=== PATIENT | female | born 1975 | race Caucasian/White ===

== ENCOUNTER 2025-02-11 14:19 | Outpatient (CLI) | payer OTHER, SELFPAY | END 2025-02-11 14:20 | disposition home or self-care (01) | LOC: AMB 02-12 13:13 | PROVIDERS: Visit Provider Emergency Medicine | DX: R55 Syncope and collapse (principal); R53.1 Weakness | CPT/HCPCS: A0425; A0427 ==

== ENCOUNTER 2025-02-11 14:45 | Emergency (ER) | payer OTHER, SELFPAY ==
--- OUTSIDE RECORDS SUMMARY | 2005-11-24 05:26 | XMS_ITS | Continuity of Care Document ---
Author Organization [facility] Address [address] [place] [address] Phone Care Team Providers Care Production Planning Manager Name Role Phone Unavailable Unavailable Unavailable Advance Directives Directive Yes / No Effective Date File Name No Information Encounters Encounter Description Practice Location Reason(s) For Visit Diagnoses Date Provider Providers Copied on Encounter [facility], [address], [place], [place], [id number], tel:[phone] [facility] No Information 0 6-200 6 No Information Referring Provider: Neno Navarrete MD [address], [address], [place], [address]. tel:[phone] Family History Family Member Type Diagnosis Age At Onset No Information Payers Payer name Insurance type Covered green party ID Authoriza tion(s) No Information Social History Type Description Quantity Date Captured Comments Sex Female Smoking Status No Information Chief Complaint And Reason For Visit No Information Reason For Referral Reason For Referral No Information History Of Present Illness Encounter Date Complaint History Of Prese nt Illness No Information Functional Status Date Functional Assessmen t No Information Instructions Date Instruction Additional Infor mation No Information Assessments Type Assessment Date No Information Patient Care Teams Name Effective Dates (start - stop) Status Members No Information
--- OUTSIDE RECORDS SUMMARY | 2005-11-24 05:26 | XMS_ITS | Continuity of Care Document ---
Author Organization [facility] Address [address] [place] [address] Phone Care Team Providers Care Animal Handler Name Role Phone Unavailable Unavailable Unavailable Advance Directives Directive Yes / No Effective Date File Name No Information Encounters Encounter Description Practice Location Reason(s) For Visit Diagnoses Date Provider Providers Copied on Encounter [facility], [address], [place], [place], [id number], tel:[phone] [facility] No Information 0 6-200 6 No Information Referring Provider: Neno Navarrete MD [address], [place], [address]. tel:[phone] Family History Family Member Type Diagnosis Age At Onset No Information Payers Payer name Insurance type Covered alliance party ID Authoriza tion(s) No Information Social [...]
[2025-02-11 14:55] VITALS: BP 113/70; BP 113/80; BP 124/71; PULSE 60; PULSE 63; PULSE 64; RESP 16; TEMP 36.3; O2SAT 100; BMI 17.9
[2025-02-11 15:48] LABS: Appearance Urine Clear (Clear)
--- NOTE | 2025-02-11 15:50 | ED_ITS ---
HPI - General Adult General Date Seen: 02/11/25 Chief complaint: Weakness Stated complaint: Syncope Time Seen by Provider: 02/11/25 15:03 Source: patient Mode of arrival: EMS Limitations: no limitations History of Present Illness HPI narrative: Patient is a 49-year-old female presenting to the emergency department for near syncopal episode. She states she was at work few days ago when she was wrapping up a [employer] when she started feeling lightheaded and felt like she was going to pass out. Symptoms resolved within occurred last night and again the 3rd time today while she was at work again. States the symptoms have happened before. The 1st occurred several months ago. She states she has been having issues ever since she got a bad concussion several years ago. Unsure exactly how long ago it was. Her colleague brought her to urgent care and they then sent her to the emergency department via ambulance. She states she is feeling better now that she is laying down. Denies any chest pain or shortness of breath associated with the episode. Denies headache, vision changes, weakness, numbness, abdominal pain, diarrhea, constipation, fevers, chills. Does states she at base line has bradycardia and heart rate is usually around 50. No other concerns noted at this time. Related Data Home Medications ?Medication ?Instructions ?Recorded ?Confirmed No Known Home Medications 02/11/2501/21 Allergies Allergy/AdvReac Type Severity Reaction Status Date / Time amoxicillin Allergy Mild Rash Verified 02/11/25 14:15 Penicillins Allergy Mild Rash Verified 02/11/25 14:15 oxycodone Allergy Unknown Gastrointestinal Verified 02/11/25 14:15 Upset Review of Systems Status of ROS: Reports: 10 or more systems reviewed and unremarkable except as noted in History and below [facility] Medical History Encounter for allergy testing ?Z01.82 - Encounter for allergy testing (ICD-10) Chronic neck pain ?M54.2 - Cervicalgia (ICD-10) ?G89.29 - Other chronic pain (ICD-10) Carpal tunnel syndrome, bilateral ?G56.03 - Carpal tunnel syndrome, bilateral upper limbs (ICD-10) Surgical History History of dilation and curettage ?Z98.890 - Other specified postprocedural states (ICD-10) 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) ?Z96.641 - Presence of right artificial hip joint (ICD-10) History of arthroscopic surgery of shoulder (09/24/16) ?Z98.890 - Other specified postprocedural states (ICD-10) History of loop electrical excision procedure (LEEP) (02/14/07) ?Z98.890 - Other specified postprocedural states (ICD-10) History of breast augmentation (2019) ?Z98.82 - Breast implant status (ICD-10) History of tubal ligation (2007) ?Z98.51 - Tubal ligation status (ICD-10) History of arthroscopy of both knees ?Z98.890 - Other specified postprocedural states (ICD-10) History of lumbar fusion ?Z98.1 - Arthrodesis status (ICD-10) Family History Mother Breast cancer Father High blood pressure Rheumatoid arthritis Skin cancer Exam Narrative: Exam Narrative: Const: Well-nourished, Well-developed, in no distress Eyes: PERRL, no conjunctival injection, and symmetrical lids HENT: Atraumatic external nose and ears. Moist mucous membranes. Neck: Symmetric, trachea midline, No thyromegaly. CVS: Bradycardia, No murmurs or gallops. Peripheral pulses 2+ and equal in all extremities RESP: Unlabored respiratory effort. Clear to auscultation bilaterally. GI: Nontender/Nondistended, No rebound or guarding. MSK:Extremities w/o deformity, Normal Active ROM Skin: Warm, Dry. No rashes or lesions. Neuro: Normal Muscle tone, No focal neurological deficits. Psych: Awake, Alert, & Oriented x3. Appropriate mood and affect. Const: Vital Signs, click to edit/add: Vital Signs - 24 hr 02/11/25 14:55 02/11/25 14:55 02/11/25 17:19 Temperature 97.3 F L Pulse Rate 60 Pulse Rate [Pulse Oximeter] 60 Pulse Rate [orthos tatic lying] 60 Pulse Rate [orthos tatic sitting] 63 Pulse Rate [orthos tatic standing] 64 Respiratory Rate 16 18 Blood Pressure 111/84 Blood Pressure [Le ft Upper Arm] 113/70 Blood Pressure [or thostatic lying] 113/70 Blood Pressure [or thostatic sitting] 124/71 Blood Pressure [or thostatic standing ] 113/80 Pulse Oximetry 100 97 Oxygen Delivery Me thod Room Air Course Vital Signs Vital signs: Initial Vital Signs Temperature 97.3 F L 02/11/25 14:55 Temperature Source Temporal Artery Scan 02/11/25 14:55 Pulse Rate 60 02/11/25 14:55 Respiratory Rate 16 02/11/25 14:55 Blood Pressure 113/70 02/11/25 14:55 Blood Pressure Mean 84 02/11/25 14:55 Blood Pressure Position Supine 02/11/25 14:55 Pulse Oximetry 100 02/11/25 14:55 Oxygen Delivery Method Room Air 02/11/25 14:55 Vital Signs Temperature 97.3 F L 02/11/25 14:55 Pulse Rate 60 02/11/25 14:55 Respiratory Rate 16 02/11/25 14:55 Blood Pressure 113/70 02/11/25 14:55 Pulse Oximetry 100 02/11/25 14:55 Oxygen Delivery Method Room Air 02/11/25 14:55 Temperature 97.3 F L 02/11/25 14:55 Pulse Rate 60 02/11/25 17:19 Respiratory Rate 18 02/11/25 17:19 Blood Pressure 111/84 02/11/25 17:19 Pulse Oximetry 97 02/11/25 17:19 Oxygen Delivery Method Room Air 02/11/25 14:55 Medications Administered Medications: Discontinued Medications Generic Name Dose Route Start Last Admin Trade Name Freq PRN Reason Stop Dose Admin Lactated Ringer's 1,000 mls @ 1,000 mls/hr 02/11/25 15:31 02/11/25 17:10 Lactated Ringers 1000 Ml IV 02/11/25 16:30 Infused .Q1H ONE Infusion Medical Decision Making [facility] Narrative Medical decision making narrative: Patient is a 49-year-old female presenting to the emergency department for near syncope. Differential at this time includes cardiac abnormalities, infection, electrolyte abnormalities, dehydration. Will order a L of fluids, CBC, CMP, magnesium, urinalysis, EKG, troponin to help better evaluate. Do not believe imaging is necessary at this time. Patient's lab work returned showing no acute concerning abnormalities. She is bradycardic on her EKG but according to her that is baseline. Of note she later informed us that she is drinking spring water straight from the ground and does not treat it. She is also unvaccinated. She has neck pain but that is chronic for her and denies a headache. Well she has been drinking this water for over a year seems unlikely she has any kind of brain eating a me by causing the symptoms as she is not having any neurologic symptoms. I will put a Zio patch on her but she still setting up primary care and has her 1st visit next week. I do think it will be better for them to do it. I do believe she is safe to wait as this is not a new issue for her. She did receive a L of fluids which she initially was rejected. She will be discharged. Lab Data Labs: Lab Results 02/11/25 02/11/25 02/11/25 Range/Units 15:15 15:30 15:45 WBC 6.91 (4.50-11.00) K/uL RBC 3.87 L (4.00-5.20) m/uL Hgb 12.2 (12.0-16.0) gm/dL Hct 36.9 (33.0-51.0) % MCV 95 (80-100) fL MCH 32 (26-34) pg MCHC 33 (32-36) gm/dL RDW Coeff of Santiago 13.0 (11.5-15.5) % Plt Count 255 (140-440) K/uL Neut % (Auto) 59.2 (42.0-72.0) % Lymph % (Auto) 29.5 (20-44) % Moody % (Auto) 9.0 (0.0-11.0) % Eos % (Auto) 1.9 (0.0-7.0) % Baso % (Auto) 0.3 (0.0-3.0) % Neut # (Auto) 4.09 (1.7-7.0) K/uL Lymph # (Auto) 2.04 (0.90-2.90) K/uL Moody # (Auto) 0.60 (0.00-0.90) K/UL Eos # (Auto) 0.13 (0.00-0.50) K/uL Baso # (Auto) 0.02 (0.00-0.30) K/uL Abs Immat Gran (auto) 0.01 (0.00-0.30) K/uL Imm/Tot Granulo (auto) 0.1 % Sodium 138 (135-149) mmol/L Potassium 3.9 (3.6-5.1) mmol/L Chloride 104 (96-114) mmol/L Carbon Dioxide 28 (20-32) mmol/L Anion Gap 6 L (7-15) mEq/L BUN 5 (5-24) mg/dL Creatinine 0.6 (0.5-1.5) mg/dL Estimated Creat Clear 92.59 Estimated GFR 110 ml/min Glucose 94 (60-115) mg/dL Calcium 8.9 (8.4-10.6) mg/dL Magnesium 2.1 (1.5-2.6) mg/dL Total Bilirubin 0.3 (0.1-1.5) mg/dL AST 30 (12-35) U/L ALT 14 (4-35) U/L Alkaline Phosphatase 52 (40-150) U/L Total Protein 6.4 (6.0-8.3) g/dL Albumin 4.0 (3.3-5.0) g/dL Urine Color Yellow (Yellow) Urine Appearance Clear (Clear) Urine pH 7.0 (5.0-8.5) Ur Specific Alma 1.015 (1.000-1.030) Urine Protein Negative (Negative) Urine Glucose (UA) Negative (Negative) Urine Ketones Negative (Negative) Urine Blood Negative (Negative) Urine Nitrite Negative (Negative) Urine Bilirubin Negative (Negative) Urine Urobilinogen 0.2 (0.2-1.0) Ur Leukocyte Esterase Negative (Negative) Urine RBC 0-2 (0-2) Urine WBC 0-2 (0-5) Ur Squamous Epith Cells None (None-Few) Urine Bacteria None (None) Urine HCG, Qual Negative (Negative) Lab Acknowledgement POC Troponin I 0.00 L (0.01-0.04) ng/ml 02/11/25 Range/Units 16:31 WBC (4.50-11.00) K/uL RBC (4.00-5.20) m/uL Hgb (12.0-16.0) gm/dL Hct (33.0-51.0) % MCV (80-100) fL MCH (26-34) pg MCHC (32-36) gm/dL RDW Coeff of Santiago (11.5-15.5) % Plt Count (140-440) K/uL Neut % (Auto) (42.0-72.0) % Lymph % (Auto) (20-44) % Moody % (Auto) (0.0-11.0) % Eos % (Auto) (0.0-7.0) % Baso % (Auto) (0.0-3.0) % Neut # (Auto) (1.7-7.0) K/uL Lymph # (Auto) (0.90-2.90) K/uL Moody # (Auto) (0.00-0.90) K/UL Eos # (Auto) (0.00-0.50) K/uL Baso # (Auto) (0.00-0.30) K/uL Abs Immat Gran (auto) (0.00-0.30) K/uL Imm/Tot Granulo (auto) % Sodium (135-149) mmol/L Potassium (3.6-5.1) mmol/L Chloride (96-114) mmol/L Carbon Dioxide (20-32) mmol/L Anion Gap (7-15) mEq/L BUN (5-24) mg/dL Creatinine (0.5-1.5) mg/dL Estimated Creat Clear Estimated GFR ml/min Glucose (60-115) mg/dL Calcium (8.4-10.6) mg/dL Magnesium (1.5-2.6) mg/dL Total Bilirubin (0.1-1.5) mg/dL AST (12-35) U/L ALT (4-35) U/L Alkaline Phosphatase (40-150) U/L Total Protein (6.0-8.3) g/dL Albumin (3.3-5.0) g/dL Urine Color (Yellow) Urine Appearance (Clear) Urine pH (5.0-8.5) Ur Specific Al[place] (1.000-1.030) Urine Protein (Negative) Urine Glucose (UA) (Negative) Urine Ketones (Negative) Urine Blood (Negative) Urine Nitrite (Negative) Urine Bilirubin (Negative) Urine Urobilinogen (0.2-1.0) Ur Leukocyte Esterase (Negative) Urine RBC (0-2) Urine WBC (0-5) Ur Squamous Epith Cells (None-Few) Urine Bacteria (None) Urine HCG, Qual (Negative) Lab Acknowledgement Test Added POC Troponin I (0.01-0.04) ng/ml ECG Data Attestation: I personally reviewed and interpreted this ECG as follows: Prior ECG tracings: not available for review Interpretation: Sinus bradycardia with a rate 57 beats per minute, normal intervals, normal axis, normal ST or T-wave abnormalities. Discharge Plan Discharge Clinical Impression: Near syncope Patient Disposition: Home, Self-Care Condition: Stable Instructions: Near Syncope (ED) Additional Instructions: Make sure to follow up with your upcoming PCP appointment. They may talk about doing a zio patch or refer you to cardiology. Return to ED for new or worsening symptoms Prescriptions: No Action No Known Home Medications Follow Up/Referrals: Provider,Not a Local [Primary Care Provider, Family Practice] Stand Alone Forms: [facility] Info Instructions
[2025-02-11 15:57] LABS: Ur HCG Qualitative* Negative (Negative)
[2025-02-11 15:57] LABS: Troponin, Point-of-Care* 0.00 ng/ml (0.01-0.04)
[2025-02-11] MEDS: LACTATED RINGERS 1000 ML 1,000 ML IV (16:09)
[2025-02-11 16:14] LABS: Albumin* 4.0 g/dL (3.3-5.0); Chloride* 104 mmol/L (96-114); Potassium* 3.9 mmol/L (3.6-5.1); Sodium* 138 mmol/L (135-149)
[2025-02-11 16:17] LABS: Alanine Aminotransferase* 14 U/L (4-35); Alkaline Phosphatase* 52 U/L (40-150); Anion Gap 6 mEq/L (7-15); Aspartate Amino Transferase* 30 U/L (12-35); Bilirubin Total* 0.3 mg/dL (0.1-1.5); Blood Urea Nitrogen* 5 mg/dL (5-24); Carbon Dioxide* 28 mmol/L (20-32); Creatinine* 0.6 mg/dL (0.5-1.5); Est. Creatinine Clearance* 92.59; Estimated Glomerular Filt Rate 110 ml/min; Total Protein* 6.4 g/dL (6.0-8.3)
[2025-02-11 16:18] LABS: Calcium* 8.9 mg/dL (8.4-10.6); Glucose* 94 mg/dL (60-115)
[2025-02-11 16:39] LABS: Hematocrit* 36.9 % (33.0-51.0); Hemoglobin* 12.2 gm/dL (12.0-16.0); Immature Granulocytes Abs Auto 0.01 K/uL (0.00-0.30); Immature Granulocytes Pct Auto 0.1 %; Lymphocytes Absolute Auto 2.04 K/uL (0.90-2.90); Mean Corpuscular HGB Conc 33 gm/dL (32-36); Mean Corpuscular Hemoglobin 32 pg (26-34); Mean Corpuscular Volume 95 fL (80-100); RDW Coefficient of Variation % 13.0 % (11.5-15.5); Red Blood Count* 3.87 m/uL (4.00-5.20); Slide Review Reflex No; White Blood Count* 6.91 K/uL (4.50-11.00)
[2025-02-11 17:19] VITALS: BP 111/84; PULSE 60; RESP 18; O2SAT 97
== END 2025-02-11 18:10 | disposition home or self-care (01) ==
PROVIDERS: Emergency Provider Student in an Organized Health Care Education/Training Program
DX: R55 Syncope and collapse (principal)
CPT/HCPCS: 36415; 80053; 81001; 81025; 83735; 84484; 85025; 87631; 93005; 99284; J7120